=== PATIENT | female | born 1960 | race Caucasian/White ===

== ENCOUNTER 2022-03-18 14:00 | Emergency (ER) | payer OTHER ==
[~2022-03-18] VITALS: Ht 165.1 cm; Wt 52.2 kg
[~2022-03-18 14:00] MED LIST: ALPR0.5T PO; BUPR100T5 PO; ESCI10TA PO; MIRT-121 PO; TRAZ-182 PO
[2022-03-18] MEDS ORDERED: TDAP DIPH,PERTUSS,TET VAC/PF 0.5 ML DISP.SYRIN IM ONE ×2 (14:30→14:47)
--- NOTE | 2022-03-18 14:51 | NUR ---
at bedside suture repairing in progress.
== END 2022-03-18 15:24 | disposition home or self-care (01) ==
LOC: ER 14:02
DX: S01.511A Laceration without foreign body of lip, initial encounter (principal); W06.XXXA Fall from bed, initial encounter; Y92.019 Unspecified place in single-family (private) house as the place of occurrence of the external cause; G20 Parkinson's disease; F41.9 Anxiety disorder, unspecified; Z79.899 Other long term (current) drug therapy
CPT/HCPCS: 90715; A4663